=== PATIENT | male | born 2000 | race Caucasian/White ===

== ENCOUNTER 2022-02-22 19:53 | Emergency (ER) | payer OTHER ==
--- NOTE | 2022-02-22 20:06 | ED Chest Pain ---
General Chief Complaint: Chest Pain Stated Complaint: CHEST PAIN Source: patient History of Present Illness Date Seen by Provider: Feb 22, 2022 Time Seen by Provider: 19:58 Initial Comments PT ARRIVES VIA POV FROM HOME C/O CHEST PAIN SINCE 1800 TONIGHT, WHILE SITTING PAIN IS TO LEFT OF STERNUM, IS CONSTANT, STABBING PAIN AND RATES IT 6/10 NO RADIATION OF PAIN CHEST DOES HURT TO TAKE A DEEP BREATH, AND FEELS A LITTLE SHORT OF BREATH + SWEATS NO NAUSEA/VOMITING NO SWELLING IN LEGS/FEET OR PAIN IN CALVES NO DIZZINESS OR SYNCOPE NO COUGH OR URI SYMPTOMS PT DENIES ANY UNUSUAL ACTIVITIES, AND IS NOT IN ANY SPORTS. HE DOES WORK OUT 3-4 TIMES A WEEK, AND HAS NOT DONE ANYTHING DIFFERENT THAN NORMAL WHEN WORKING OUT. HAS NOT TAKEN ANYTHING FOR PAIN NO HISTORY OF SIMILAR. PT HAS HISTORY OF A HEART MURMUR AND IS SCHEDULED TO HAVE OPEN HEART SURGERY 03/17/22 AT [facility] IN [place] PT IS NOT SURE WHAT KIND OF SURGERY HE IS TO HAVE, OR WHAT EXACTLY IS WRONG WITH HIS HEART, OTHER THAN HE HAS A HEART MURMUR--POSSIBLY SURGERY ON VALVE ?? HAS AN APPOINTMENT WITH SURGEON 03/15/22 NO PRIOR CARDIAC SURGERIES OR PROCEDURES. PT HAS HAD COVID-19 VACCINE X 3, AND FLU VACCINE FOR THIS SEASON PT IS [employer] STUD[employer] FROM [place], [place] STATES HE IS STRESSED OVER FINALS NEXT WEEK AND UPCOMING SURGERY. PT IS [employer] STUDENT FROM [place], [place] Allergies and Home Medications Allergies Coded Allergies: No Known Drug Allergies (Unverified , 02/22/22) Patient Home Medication List Home Medication List Reviewed: Yes Review of Systems Review of Systems Constitutional: see HPI; No chills; diaphoresis; No dizziness, No fever EENTM: No Symptoms Reported Respiratory: See HPI Cardiovascular: See HPI Gastrointestinal: No Symptoms Reported Genitourinary: No Symptoms Reported Musculoskeletal: no symptoms reported Skin: no symptoms reported Psychiatric/Neurological: No Symptoms Reported Endocrine: No Symptoms Reported Hematologic/Lymphatic: No Symptoms Reported Past Swrdujs-Jycqkh-Fnxglz Hx Patient Social History Tobacco Use?: No Use of E-Cig and/or Vaping dev: No Substance use?: No Alcohol Use?: Yes Alcohol type: Beer, Hard Liquor Alcohol Frequency: Couple times a week Pt feels they are or have been: No Immunizations Up To Date Influenza Vaccine Up-to-Date: No; Not Current Third COVID19 Vaccination Date: 2021 COVID19 Vaccine Photographers' Model: NORM Past Medical History Surgeries: Yes (WISDOM TEETH) Respiratory: No Cardiac: Yes Congenital Heart Disease, Heart Murmur Neurological: No Genitourinary: No Gastrointestinal: No Musculoskeletal: No Endocrine: No HEENT: No (WISDOM TEETH REMOVED) Cancer: No Psychosocial: No Integumentary: No Blood Disorders: No Physical Exam Vital Signs Vital Signs - First Documented 02/22/22 19:59 Temp 36.5 Pulse 62 Resp 22 B/P (MAP) 159/92 (114) Pulse Ox 100 O2 Delivery Room Air Capillary Refill : Height, Weight, BMI Height: '" Weight: lbs. oz. kg; BMI Method: General Appearance: No Apparent Distress, WD/WN, Other (DOES NOT APPEAR ILL OR TO BE IN ANY DISCOMFORT OR DISTRESS. ) HEENT: PERRL/EOMI Neck: Full Range of Motion, Normal Inspection, Non Tender, Supple; No Carotid Bruit, No JVD Respiratory: Normal Breath Sounds, No Accessory Muscle Use, No Respiratory Distress, Other (TENDERNESS TO LEFT PARASTERNAL AREA--PALPATION REPRODUCES PAIN ) Cardiovascular: Regular Rate, Rhythm, No Edema, No JVD, Normal Peripheral Pulses, Systolic Murmur (1-2/6) Gastrointestinal: Non Tender, Soft Extremity: Normal Capillary Refill, Normal Inspection, Non Tender, No Calf Tenderness, No Pedal Edema Neurologic/Psychiatric: Alert, Oriented x3, No Motor/Sensory Deficits, Normal Mood/Affect, visual training aide II-XII Norm as Tested Skin: Normal Color, Warm/Dry Progress/Results/Core Measures Results/Orders Lab Results Laboratory Tests Test 02/22/22 20:10 02/22/22 20:51 Range/Units White Blood Count 7.5 4.3-11.0 10^3/uL Red Blood Count 5.17 4.30-5.52 10^6/uL Hemoglobin 15.8 13.3-17.7 g/dL Hematocrit 44 40-54 % Mean Corpuscular Volume 85 80-99 fL Mean Corpuscular Hemoglobin 31 25-34 pg Mean Corpuscular Hemoglobin Concent 36 32-36 g/dL Red Cell Distribution Width 12.2 10.0-14.5 % Platelet Count 207 130-400 10^3/uL Mean Platelet Volume 11.4 9.0-12.2 fL Immature Granulocyte % (Auto) 0 % Neutrophils (%) (Auto) 59 42-75 % Lymphocytes (%) (Auto) 32 12-44 % Monocytes (%) (Auto) 7 0-12 % Eosinophils (%) (Auto) 1 0-10 % Basophils (%) (Auto) 0 0-10 % Neutrophils # (Auto) 4.4 1.8-7.8 10^3/uL Lymphocytes # (Auto) 2.4 1.0-4.0 10^3/uL Monocytes # (Auto) 0.6 0.0-1.0 10^3/uL Eosinophils # (Auto) 0.1 0.0-0.3 10^3/uL Basophils # (Auto) 0.0 0.0-0.1 10^3/uL Immature Granulocyte # (Auto) 0.0 0.0-0.1 10^3/uL Erythrocyte Sedimentation Rate 1 0-15 MM/HR Prothrombin Time 13.9 12.2-14.7 SEC INR Comment 1.0 0.8-1.4 Activated Partial Thromboplast Time 30 24-35 SEC D-Dimer <= 0.27 0.00-0.49 UG/ML Sodium Level 143 135-145 MMOL/L Potassium Level 4.2 3.6-5.0 MMOL/L Chloride Level 107 98-107 MMOL/L Carbon Dioxide Level 26 21-32 MMOL/L Anion Gap 10 5-14 MMOL/L Blood Urea Nitrogen 17 7-18 MG/DL Creatinine 0.83 0.60-1.30 MG/DL Estimat Glomerular Filtration Rate 129 BUN/Creatinine Ratio 20 Glucose Level 97 70-105 MG/DL Calcium Level 9.9 8.5-10.1 MG/DL Corrected Calcium 8.5-10.1 MG/DL Magnesium Level 1.9 1.6-2.4 MG/DL Total Bilirubin 0.7 0.1-1.0 MG/DL Aspartate Amino Transf (AST/SGOT) 15 5-34 U/L Alanine Aminotransferase (ALT/SGPT) 16 0-55 U/L Alkaline Phosphatase 104 40-136 U/L Total Creatine Kinase 138 30-200 U/L Creatine Kinase MB 1.6 <6.6 NG/ML Myoglobin 25.5 10.0-92.0 NG/ML Troponin I < 0.028 <0.028 NG/ML C-Reactive Protein High Sensitivity 0.02 0.00-0.50 MG/DL B-Type Natriuretic Peptide 16.3 <100.0 PG/ML Total Protein 8.1 6.4-8.2 GM/DL Albumin 5.1 H 3.2-4.5 GM/DL Amylase Level 38 25-125 U/L Lipase 23 8-78 U/L Serum Alcohol < 10 <10 MG/DL Influenza Type A (RT-PCR) Not Detected Not Detecte Influenza Type B (RT-PCR) Not Detected Not Detecte SARS-CoV-2 RNA (RT-PCR) Not Detected Not Detecte Urine Color YELLOW Urine Clarity CLEAR Urine pH 6.5 5-9 Urine Specific [place] >=1.030 1.016-1.022 Urine Protein NEGATIVE NEGATIVE Urine Glucose (UA) NEGATIVE NEGATIVE Urine Ketones NEGATIVE NEGATIVE Urine Nitrite NEGATIVE NEGATIVE Urine Bilirubin NEGATIVE NEGATIVE Urine Urobilinogen 2.0 < = 1.0 MG/DL Urine Leukocyte Esterase NEGATIVE NEGATIVE Urine RBC (Auto) NEGATIVE NEGATIVE Urine RBC NONE /HPF Urine WBC NONE /HPF Urine Squamous Epithelial Cells NONE /HPF Urine Renal Epithelial Cells NONE /HPF Urine Crystals NONE /LPF Urine Bacteria NEGATIVE /HPF Urine Casts NONE /LPF Urine Mucus NEGATIVE /LPF Urine Culture Indicated NO Urine Opiates Screen NEGATIVE NEGATIVE Urine Oxycodone Screen NEGATIVE NEGATIVE Urine Methadone Screen NEGATIVE NEGATIVE Urine Propoxyphene Screen NEGATIVE NEGATIVE Urine Barbiturates Screen NEGATIVE NEGATIVE Ur Tricyclic Antidepressants Screen NEGATIVE NEGATIVE Urine Phencyclidine Screen NEGATIVE NEGATIVE Urine Amphetamines Screen NEGATIVE NEGATIVE Urine Methamphetamines Screen NEGATIVE NEGATIVE Urine Benzodiazepines Screen NEGATIVE NEGATIVE Urine Cocaine Screen NEGATIVE NEGATIVE Urine Cannabinoids Screen NEGATIVE NEGATIVE My Orders Orders - ANATOLY KHAN DO Cbc With Automated Diff (02/22/22 20:03) Magnesium (02/22/22 20:03) Chest 1 View, Ap/Pa Only (02/22/22 20:03) Ekg Tracing (02/22/22 20:03) Comprehensive Metabolic Panel (02/22/22 20:03) Myoglobin Serum (02/22/22 20:03) Protime With Inr (02/22/22 20:03) Partial Thromboplastin Time (02/22/22 20:03) O2 (02/22/22 20:03) Monitor-Rhythm Ecg Trace Only (02/22/22 20:03) Ed Iv/Invasive Line Start (02/22/22 20:03) Creatine Kinase (02/22/22 20:03) Creatine Kinase Mb (02/22/22 20:03) Lipase (02/22/22 20:03) Amylase (02/22/22 20:03) Bnp [place] (02/22/22 20:03) Fibrin Degradation Products (02/22/22 20:03) Troponin I [place] (02/22/22 20:03) Aspirin Chewable Tablet (Baby Aspirin Ch (02/22/22 20:15) Hs C Reactive Protein (02/22/22 20:06) Erythrocyte Sedimentation Rate (02/22/22 20:06) Covid 19 Inhouse Test (02/22/22 20:06) Influenza A And B By Pcr (02/22/22 20:06) Isolation Central Supply Req (02/22/22 20:06) Alcohol (02/22/22 20:06) Drug Screen Stat (Urine) (02/22/22 20:06) Ua Culture If Indicated (02/22/22 20:06) Ketorolac Injection (Toradol Injection) (02/22/22 21:00) Medications Given in ED Current Medications Medications Dose Ordered Sig/Ashli Route Start Time Stop Time Status Last Admin Dose Admin Aspirin 324 mg ONCE ONCE PO 02/22/22 20:15 02/22/22 20:16 DC 02/22/22 20:19 324 MG Ketorolac Tromethamine 30 mg ONCE ONCE IVP 02/22/22 21:00 02/22/22 21:01 DC 02/22/22 21:17 30 MG Vital Signs/I&O 02/22/22 02/22/22 19:59 21:51 Temp 36.5 Pulse 62 57 Resp 22 20 B/P (MAP) 159/92 (114) 105/73 Pulse Ox 100 97 O2 Delivery Room Air Room Air Progress Progress Note : Progress Note GIVEN ASPIRIN AND TORADOL PAIN RESOLVED AT DISMISSAL PT STATES AT DISMISSAL, HE REALLY THINKS THE PAIN IS BECAUSE HE IS STRESSED OUT WITH SCHOOL AND UPCOMING SURGERY. UNEVENTFUL ER STAY. ANTICIPATED COURSE, NEED FOR FOLLOW UP TOMORROW WITH [facility] AND RETURN PRECAUTIONS DISCUSSED WITH PT. Initial ECG Impression Date: Feb 22, 2022 Initial ECG Impression Time: 20:02 Initial ECG Rate: 54 Initial ECG Rhythm: Normal Sinus Initial ECG Impression: Nonspecific Changes Initial ECG Comparisson: No Previous ECG Available Diagnostic Imaging Comments CXR--PER RADIOLOGIST REPORT AT 2035 FINDINGS: The lungs appear clear without focal airspace opacities or consolidation. There are no findings of an effusion. There is no evidence of a pneumothorax. Heart size and mediastinal contours appear appropriate. Pulmonary vascularity appears within normal limits. There is no acute or suspicious osseous abnormality demonstrated. IMPRESSION: No radiographic evidence of an acute cardiopulmonary process. Reviewed: Reviewed by Me Departure Impression Primary Impression: Chest pain Additional Impressions: Chest wall pain Congenital heart defect Disposition: HOME, SELF-CARE Condition: Improved Departure-Patient Inst. Decision time for Depature: 21:30 Referrals: NO,LOCAL PHYSICIAN (PCP) Primary Care Physician JUAN JOSE ORTIZ MD Patient Instructions: Chest Pain (DC), Costochondritis (DC) Add. Discharge Instructions: HOME, REST AVOID WORKING OUT UNTIL YOU ARE RECHECKED AND CLEARED BY DR. TAKE 81 MG ASPIRIN DAILY. YOU MAY TAKE TYLENOL 1 GRAM AND MOTRIN 800 MG EVERY 6 HOURS NEEDED FOR PAIN FOLLOW UP WITH [employer] [facility] TOMORROW FOR RECHECK RETURN TO ER IF SYMPTOMS WORSEN All discharge instructions reviewed with patient and/or family. Voiced understanding. ANATOLY KHAN DO Feb 22, 2022 20:06
[2022-02-22] MEDS ORDERED: ASPIRIN 81 MG CHEW (CHILDREN'S ASA) PO ONE (20:15)
[2022-02-22 20:23] LABS: BASOPHILS % (AUTO) 0 % (0-10); EOSINOPHILS # (AUTO) 0.1 10^3/uL (0.0-0.3); EOSINOPHILS % (AUTO) 1 % (0-10); HEMATOCRIT 44 % (40-54); HEMOGLOBIN 15.8 g/dL (13.3-17.7); LYMPHOCYTES # (AUTO) 2.4 10^3/uL (1.0-4.0); LYMPHOCYTES % (AUTO) 32 % (12-44); MEAN CORPUSCULAR HEMOGLOBIN 31 pg (25-34); MEAN CORPUSCULAR HGB CONC 36 g/dL (32-36); MEAN CORPUSCULAR VOLUME 85 fL (80-99); MEAN PLATELET VOLUME 11.4 fL (9.0-12.2); MONOCYTES # (AUTO) 0.6 10^3/uL (0.0-1.0); MONOCYTES % (AUTO) 7 % (0-12); NEUTROPHILS # (AUTO) 4.4 10^3/uL (1.8-7.8); NEUTROPHILS % (AUTO) 59 % (42-75); PLATELET COUNT 207 10^3/uL (130-400); WHITE BLOOD COUNT 7.5 10^3/uL (4.3-11.0)
--- NOTE | 2022-02-22 20:32 | Diagnostic Imaging Report ---
INDICATION: Chest pain. COMPARISON: None available. FINDINGS: The lungs appear clear without focal airspace opacities or consolidation. There are no findings of an effusion. There is no evidence of a pneumothorax. Heart size and mediastinal contours appear appropriate. Pulmonary vascularity appears within normal limits. There is no acute or suspicious osseous abnormality demonstrated. IMPRESSION: No radiographic evidence of an acute cardiopulmonary process. Dictated by: Dictated on workstation # [id number]
[2022-02-22 20:33] LABS: ALBUMIN 5.1 GM/DL (3.2-4.5); CHLORIDE 107 MMOL/L (98-107); POTASSIUM 4.2 MMOL/L (3.6-5.0); SODIUM 143 MMOL/L (135-145)
[2022-02-22 20:34] LABS: CALCIUM 9.9 MG/DL (8.5-10.1); PROTHROMBIN TIME PATIENT 13.9 SEC (12.2-14.7)
[2022-02-22 20:35] LABS: AMYLASE 38 U/L (25-125); GLUCOSE 97 MG/DL (70-105)
[2022-02-22 20:36] LABS: TOTAL PROTEIN 8.1 GM/DL (6.4-8.2)
[2022-02-22 20:37] LABS: BILIRUBIN,TOTAL 0.7 MG/DL (0.1-1.0); CARBON DIOXIDE 26 MMOL/L (21-32)
[2022-02-22 20:39] LABS: ALKALINE PHOSPHATASE 104 U/L (40-136); CREATININE SERUM 0.83 MG/DL (0.60-1.30); GFR ESTIMATED 129
[2022-02-22 20:40] LABS: BUN/CREATININE RATIO 20
[2022-02-22 20:42] LABS: ALANINE AMINOTRANSFERASE 16 U/L (0-55); MAGNESIUM 1.9 MG/DL (1.6-2.4)
[2022-02-22 20:43] LABS: LIPASE 23 U/L (8-78)
[2022-02-22 20:44] LABS: CREATINE KINASE 138 U/L (30-200)
[2022-02-22 20:50] LABS: CREATINE KINASE MB 1.6 NG/ML (<6.6)
[2022-02-22 20:55] LABS: BILIRUBIN,URINE NEGATIVE (NEGATIVE); CLARITY,URINE CLEAR; COLOR,URINE YELLOW; GLUCOSE, URINE (UA) NEGATIVE (NEGATIVE); KETONES,URINE NEGATIVE (NEGATIVE); LEUKOCYTE ESTERASE ,URINE NEGATIVE (NEGATIVE); NITRITE,URINE NEGATIVE (NEGATIVE); PH,URINE 6.5 (5-9); PROTEIN,URINE NEGATIVE (NEGATIVE)
[2022-02-22] MEDS ORDERED: KETOROLAC 30 MG/ML VIAL IVP ONE (21:00)
[2022-02-22 21:01] LABS: BACTERIA,URINE NEGATIVE /HPF
[2022-02-22 21:07] LABS: AMPHETAMINE SCREEN, URINE NEGATIVE (NEGATIVE); BARBITURATE SCREEN URINE NEGATIVE (NEGATIVE); BENZODIAZEPINES SCREEN URINE NEGATIVE (NEGATIVE); CANNABINOID SCREEN, URINE NEGATIVE (NEGATIVE); COCAINE SCREEN URINE NEGATIVE (NEGATIVE); METHADONE STAT NEGATIVE (NEGATIVE); OPIATE SCREEN URINE NEGATIVE (NEGATIVE); OXYCODONE STAT NEGATIVE (NEGATIVE); PROPOXYPHENE STAT NEGATIVE (NEGATIVE); TRICYCLIC ANTIDEPRESSANTS SCRE NEGATIVE (NEGATIVE)
[2022-02-22 21:51] VITALS: BP 105/73
== END 2022-02-22 21:51 | disposition home or self-care (01) ==
LOC: ER 19:55
DX: R07.89 Other chest pain (principal); Q24.9 Congenital malformation of heart, unspecified; Z20.822 Contact with and (suspected) exposure to COVID-19
CPT/HCPCS: 71045; 80053; 80306; 81000; 82150; 82550; 82553; 83690; 83735; 83874; 83880; 84484; 85025; 85379; 85610; 85652; 85730; 86141; 87636; 93005; 93041; 99284; G0480; 36415; 80320